=== PATIENT | female | born 1990 | race Caucasian/White ===

== ENCOUNTER 2021-10-17 11:53 | Emergency (ER) | payer BC, SELFPAY ==
[2021-10-17 12:02] VITALS: BP 100/65; PULSE 84; RESP 18; TEMP 36.7; O2SAT 95; BMI 18.6
[2021-10-17 13:04] LABS: Urine Appearance Clear (CLEAR); pH Urine 6 (5-7)
[2021-10-17 13:06] LABS: Add Urine Microscopic? YES; Bilirubin Urine Neg (Negative); Glucose Urine UA Norm (Normal); Ketones Urine Negative (Negative); Leukocyte Esterase Urine Negative (Negative); Nitrate Urine Negative (Negative); Protein Urine Neg (Negative); Urobilinogen Urine Norm (Negative)
[2021-10-17 13:08] LABS: Blood Urine 3+ (Negative); Specific Gravity, Urine 1.005 (1.005-1.030); Urine Color Straw (Yellow)
[2021-10-17 13:16] LABS: Bacteria Urine 1+ /hpf; RBC Urine 0-4 /hpf (0-2); WBC Urine 0-4 /hpf (0-5)
[2021-10-17 13:17] LABS: Add Urine Culture? No
[2021-10-17 13:43] VITALS: BP 108/67; PULSE 75; O2SAT 100
--- NOTE | 2021-10-17 13:49 | ED_ITS ---
HPI - General: Chief complaint: Vaginal Bleeding Stated complaint: 8 weeks and spotting Time Seen by Provider: 10/17/21 13:48 History of Present Illness: Ms. Hooker is a 30-year-old lady -0-0-2 currently approximately 8 to 9 weeks who presents to the ER for spotting during early . She reports onset of symptoms without known provoking factor approximately 2 days ago. Since that time she has had light spotting without associated pain or other changes in health. No other specific changes in health, exacerbating, or alleviating factors identified. Onset (ago): day(s) Vaginal bleeding: light Patient : Yes Number of Weeks : 8 OB History - Previous Pregnancies: no complications care: none Related Data: : 3 Review of Systems General: Reports: 10 or more systems reviewed and unremarkable except in HPI and below PFSH ED PFSH: Medical History (Updated 10/25/21 @ 00:01 by ) No significant past medical history Surgical History (Updated 10/17/21 @ 13:54 by Bro Nichols MD) No significant past surgical history Family History (Updated 10/17/21 @ 13:54 by Bro Nichols MD) Denies family history of Clotting disorder Bleeding disorder Female Reproductive History: : 3 Physical Exam Const: COMMON NORMALS: alert GENERAL APPEARANCE: cooperative and well developed HENMT: COMMON NORMALS: normocephalic and atraumatic HEAD & SCALP: normocephalic and atraumatic Eye: COMMON NORMALS: conjunctivae normal CONJUNCTIVA: Yes conjunctivae normal SCLERA: sclerae normal Neck/C-Spine: COMMON NORMALS: supple GENERAL: Yes trachea midline Resp: COMMON NORMALS: normal respiratory effort EFFORT & INSPECTION: Yes able to speak in complete sentences Cardio: COMMON NORMALS: regular rate and regular rhythm RATE: regular rate RHYTHM: regular rhythm GI: COMMON NORMALS: Soft to palpation PALPATION: Yes Soft to palpation and No Tenderness to palpation present (GI) : OTHER: Pelvic exam performed with adjunct faculty instructor present. No external abnormality or blood noted from cervical os. There is pooling of mild amount of dark blood in the vaginal vault. Cervix is well visualized and appears closed. No significant trickle of blood noted from cervical os. No intravaginal lesions identified.. Extremity: GENERAL: Yes normal exam except as noted and No edema Neuro: COMMON NORMALS: moves all extremities SENSORIUM/ORIENTATION: Yes alert and No Orientation impaired Psych: COMMON NORMALS: mental status grossly normal and Normal thought process present THOUGHT PROCESS: Normal thought process present Procedures Perimortem Number of Weeks : 8 Course Vital Signs: Vital signs: Vital Signs Temperature 98.0 F 10/17/21 12:02 Pulse Rate 69 10/17/21 16:34 Respiratory Rate 18 10/17/21 12:02 Blood Pressure 97/71 10/17/21 16:34 Pulse Oximetry 93 10/17/21 16:34 Oxygen Delivery Me thod 10/17/21 16:34 MDM - OB/Uterine Contractions Medical Decision Making 31-year-old female presenting due to spotting during . Patient vitally satisfactory. No evidence of UTI given squamous epithelial contamination. Blood type O+. Ultrasound with IUP however no cardiac activity identified. This may be due to early gestational age or early embryonic demise. Discussed results with patient and need for repeat ultrasound. Satisfactory for outpatient management. Medical Records I reviewed the patient's medical records. Lab Data I reviewed the patient's lab results. Radiology Impressions Obstetrics Ultrasound 10/17/21 14:52 IMPRESSION: 1. Single intrauterine gestation of 5 weeks 6 days based upon the crown-rump length. 2. No cardiac activity identified. 3. Recommend follow-up ultrasound in one week to reevaluate for developing cardiac activity. Differential includes early embryonic demise versus early gestational age with cardiac activity not evident yet. Laboratory Results Ser , Semi-Qnt 7298.00 mIU/mL 10/17/21 13:45 Urine Color Straw (Yellow) 10/17/21 12:06 Urine Appearance Clear (CLEAR) 10/17/21 12:06 Urine pH 6 (5-7) 10/17/21 12:06 Ur Specific Martinez 1.005 (1.005-1.030) 10/17/21 12:06 Urine Protein Neg (Negative) 10/17/21 12:06 Urine Glucose (UA) Norm (Normal) 10/17/21 12:06 Urine Ketones Negative (Negative) 10/17/21 12:06 Urine Blood 3+ (Negative) H 10/17/21 12:06 Urine Nitrate Negative (Negative) 10/17/21 12:06 Urine Bilirubin Neg (Negative) 10/17/21 12:06 Urine Urobilinogen Norm mg/dL (Negative) 10/17/21 12:06 Ur Leukocyte Esterase Negative (Negative) 10/17/21 12:06 Urine RBC 0-4 /hpf (0-2) H 10/17/21 12:06 Urine WBC 0-4 /hpf (0-5) H 10/17/21 12:06 Ur Squamous Epith Cells 10-15 /hpf (0-5) H 10/17/21 12:06 Amorphous Sediment Not Reportable 10/17/21 12:06 Urine Bacteria 1+ /hpf (NONE) H 10/17/21 12:06 Blood Type O Positive 10/17/21 13:45 Rho(D) Type Positive 10/17/21 13:45 Discharge Plan Discharge Patient Disposition: Home Clinical Impression: Miscarriage, threatened, early Condition: Stable Discharge Orders: Discharge ED (Routine); Ordered 10/17/21 Ordered By: Bro Nichols Other Ambulatory Orders: HCG Quantitative (Routine) Timeframe: 2 Days Facility: [facility] - Location: Lab - Main Lab Ordered By: Bro Nichols Discharge Diet: Usual diet Discharge Activity: Limit activity as instructed Patient Instructions: Threatened Miscarriage (ED) Activity Restrictions/Additional Instructions: Thank you for visiting the emergency department. You were seen and evaluated for bleeding during early . As discussed the exact cause of your symptoms is unclear. Ultrasound did not visualize a heartbeat however a gestational sac was observed with an estimated gestational age of 5 weeks 6 days based on crown-rump length. Given the earliness of this could be no rmal and we recommend repeat ultrasound in 1 week for reevaluation. Additionally I recommend repeat beta-hCG quantitative test in 2 days for serial trending. Beta-hCG today was 7298. Please follow-up with your activity manager. Return to the emergency department for anything that you are concerned about and feel needs emergency department evaluation. Coding Level of Care Code ED Linen Room Houseperson for Teagan Fwgeorges Exam Comprehensive
[2021-10-17 14:30] VITALS: PULSE 64; O2SAT 100
--- NOTE | 2021-10-17 14:52 | US_ITS ---
WS: [id number] EARLY OBSTETRICAL ULTRASOUND (<14 WEEKS). HISTORY: 8 wks, bleeding COMPARISON: None available. Single intrauterine gestational sac is identified. No cardiac activity is identified. There is a very small pole measuring 0.2 cm corresponding to a gestation of 5 weeks 6 days. Mean gestational s ac diameter consistent with a 6 weeks 1 day age gestation. Yolk sac is top normal size measuring just over 5 mm in diameter. The yolk sac appears small with respect to the yolk sac. Cervix remains closed. Small amount of free fluid in the cul-de-sac. Both ovaries are identified and normal. Hypoechoic mass associated with the RIGHT ovary measures 1.5 x 1.3 x 1.9 cm consistent with a corpus luteum of . Normal vascularity to each ovary. US/US OB <=14 wk fetus w transvag IMPRESSION: 1. Single intrauterine gestation of 5 weeks 6 days based upon the crown-rump l ength. 2. No cardiac activity identified. 3. Recommend follow-up ultrasound in one week to reevaluate for developing car diac activity. Differential includes early embryonic demise versus early gestat ional age with cardiac activity not evident yet.
[2021-10-17 16:34] VITALS: BP 97/71; PULSE 69; O2SAT 93
== END 2021-10-17 17:36 | disposition home or self-care (01) ==
PROVIDERS: Emergency Provider Emergency Medicine
DX: O20.0 Threatened abortion (principal); Z3A.01 Less than 8 weeks gestation of pregnancy
CPT/HCPCS: 36415; 76801; 76817; 81001; 84702; 86900; 87210; 99284

== ENCOUNTER → 2023-10-16 10:12 | Outpatient (BNVA) | payer MEDICAID, SELFPAY | PROVIDERS: PCP Nurse Practitioner Family; Visit Provider Nurse Practitioner Family | DX: Z79.899 Other long term (current) drug therapy (principal); Z13.6 Encounter for screening for cardiovascular disorders; Z39.1 Encounter for care and examination of lactating mother; R53.83 Other fatigue | CPT/HCPCS: 80053; 80061; 81003; 82306; 83036; 84443; 85025 ==

== ENCOUNTER 2023-12-06 10:51 | Outpatient (CLI) | payer MEDICAID, SELFPAY ==
--- NOTE | 2023-12-06 10:54 | XR_ITS ---
WS: [id number] XR lumbar spine 2-3V* [id number] REASON FOR EXAM: M54.9 - Dorsalgia, unspecified FINDINGS: Normal spinal curvatures. No significant vertebral body abnormality. Mild narrowing of the L1-L2 disc space with mild endplate sclerosis and osteophytosis. No spondylolysis or significant spondylolisthesis. XR/XR lumbar spine 2-3V* [id number] IMPRESSION: Minimal change of degenerative spondylosis as above.
--- NOTE | 2023-12-06 10:54 | XR_ITS ---
WS: [id number] XR thoracic spine 3V* [id number] REASON FOR EXAM: M54.9 - Dorsalgia, unspecified FINDINGS: No vertebral body abnormality. Intervertebral disc spaces are intact and relatively well preserved. XR/XR thoracic spine 3V* [id number] IMPRESSION: No significant abnormality.
== END 2023-12-06 10:52 | disposition home or self-care (01) ==
PROVIDERS: PCP Nurse Practitioner Family; Visit Provider Nurse Practitioner Family
DX: M54.9 Dorsalgia, unspecified (principal); G89.29 Other chronic pain; M54.50 Low back pain, unspecified; M54.6 Pain in thoracic spine; M62.838 Other muscle spasm
CPT/HCPCS: 72072; 72100

== ENCOUNTER 2024-01-01 06:00 | Outpatient (RCR) | payer OTHER, SELFPAY | END 2024-01-26 23:59 | disposition home or self-care (01) | LOC: WPT 06:00 | PROVIDERS: PCP Nurse Practitioner Family; Visit Provider Nurse Practitioner Family | DX: M54.9 Dorsalgia, unspecified (principal); G89.29 Other chronic pain | CPT/HCPCS: 97110; 97112; 97161; 97530 ==

== ENCOUNTER → 2024-05-21 10:57 | Outpatient (BNVA) | payer OTHER, SELFPAY | PROVIDERS: PCP Nurse Practitioner Family; Visit Provider Nurse Practitioner Family | DX: M25.40 Effusion, unspecified joint (principal); W57.XXXA Bitten or stung by nonvenomous insect and other nonvenomous arthropods, initial encounter; M25.50 Pain in unspecified joint | CPT/HCPCS: 80053; 82728; 83550; 85025; 85651; 86038; 86140; 86160; 86200; 86431; 86618; 86666; 86668; 86757 ==